=== PATIENT | male | born 1985 | race Caucasian/White ===

== ENCOUNTER 2021-01-21 09:48 | Emergency (ER) | payer OTHER, SELFPAY ==
[2021-01-21] VITALS (7 sets, daily range): BP systolic 131–150; BP diastolic 74–89; PULSE 70–113; RESP 12–20; TEMP 36.7; O2SAT 98–100
--- NOTE | ~2021-01-21 | XR_ITS ---
EXAMINATION: XR tibia fibula RT 2V DATE: 01/21/2021 10:14 INDICATION: Right lower leg fracture with drainage TECHNIQUE: AP and crosstable lateral views of the right tibia and fibula were obtained. COMPARISON: None. FINDINGS: There is plaster splinting material about the right ankle and lower leg which partially obscures fine bone and soft tissue detail. Oblique fracture through the distal fibula with fracture plane exiting medially at the level of the tibiotalar joint. One cortical width lateral displacement and mild later al angulation of the lateral malleolar fragment. Transverse fracture across the medial malleolus at t he level of the tibiotalar joint line. There is 4 mm lateral displacement of the medial malleolar fra gment. The talar dome situated between the malleolar fragments is also mildly subluxed laterally rela tive to the tibial plafond. There is mild widening of the medial and lateral clear spaces. Finally th ere is a coronally oriented fracture crosses the posterior malleolus which involves a small portion o f the posterior articular surface of the tibial plafond. The fragment is displaced couple millimeter posteriorly and proximally and with mild posterior angulation resulting in approximately 6 mm fractur e gap with 3-4 mm incongruity at the articular surface. No other fractures identified. Normal alignme nt and joint spaces at the right knee with no right knee joint effusion. Joint spaces in the visualiz ed right forefoot also appear normal. IMPRESSION: 1. Casted Monteiro type B3 trimalleolar fracture at the right ankle with mild lateral displacement of th e medial and lateral patellar fragments and intervening talar dome. Reviewed, dictated and finalized at location A. IMPRESSION: 1. Casted Monteiro type B3 trimalleolar fracture at the right ankle with mild late ral displacement of the medial and lateral patellar fragments and intervening t alar dome.
--- NOTE | ~2021-01-21 | XR_ITS ---
XR ankle RT min 3V DATE: 01/21/2021 12:12 INDICATION: Post-reduction examination TECHNIQUE: 3 views COMPARISON: 01/21/2021 right tibia fibula FINDINGS: There is soft tissue wrap around the lower leg and ankle. There is a trimalleolar fracture with lateral subluxation at the tibiotalar joint. The lateral malleolar fracture is comminuted, with one cortical width lateral displacement. There is minimal displacement at the medial and posterior malleolar fractures. IMPRESSION: Trimalleolar fracture/lateral tibiotalar joint subluxation Reviewed, dictated and finalized at location B.
--- NOTE | 2021-01-21 10:03 | ED.GENADULT ---
HPI - General Adult General Chief complaint: Extremity Injury, Lower <TOÑO Smith Last Filed: 01/21/21 20:18> Stated complaint: right leg pain <TOÑO Smith Last Filed: 01/21/21 20:18> History of Present Illness HPI narrative: Patient is a 35-year-old male who comes to the ED today complaining of right leg pain. According to the patient 7 days ago he suffered a right tib-fib fracture. This happened because he had to jump off of a one-story roof. He was seen at [facility]. The patient says that he did not have surgery. He was placed in a Ortho-Glass splint which he is still wearing. He does not know of any follow-up appointments with any orthopedic doctors. He says that the pain is keeping him up at night. He is trying to not bear weight on that right leg, using crutches and wheelchair. The pain seems to be intermittent. He is taking Percocet which takes the edge off . Denies any fevers or any systemic symptoms. <TOÑO Smith Last Filed: 01/21/21 20:18> Related Data Home medications: Home Medications Medication Instructions Recorded Confirmed No Home Medications 01/21/21 01/21/21 <TOÑO Smith Last Filed: 01/21/21 20:18> Allergies/adverse reactions: Allergies Allergy/AdvReac Type Severity Reaction Status Date / Time erythromycin base AdvReac Intermediate Nausea and Verified 01/21/21 10:25 Vomiting <TOÑO Smith Last Filed: 01/21/21 20:18> Review of Systems Constitutional: Constitutional: Reports as per HPI, Denies fever(s), Denies night sweats and Denies weakness <TOÑO Smith Last Filed: 01/21/21 20:18> Cardiovascular: Cardiovascular: Denies chest pain, Denies edema, Denies leg edema, Denies dyspnea and Denies orthopnea <TOÑO Smith Last Filed: 01/21/21 20:18> Respiratory: Respiratory: Denies cough and Denies dyspnea <Tashi Keen PA-Jana Zuniga Last Filed: 01/21/21 20:18> Gastrointestinal: Gastrointestinal: Denies abdominal pain, Denies constipation, Denies diarrhea, Denies nausea and Denies vomiting <Tashi KeenKAROLINAJana Zuniga Last Filed: 01/21/21 20:18> Musculoskeletal: Musculoskeletal: Reports as per HPI (See HPI for right leg pain), Denies abnormal gait, Denies back pain, Denies numbness and Denies tingling <Tashi KeenKAROLINAJana - Last Filed: 01/21/21 20:18> Neurologic: Denies Abnormal speech present, Denies abnormal gait, Denies numbness, Denies tingling and Denies weakness <Tashi KeenIRLANDACassie Zuniga Last Filed: 01/21/21 20:18> Psychiatric: Psychiatric: Denies homicidal ideation and Denies suicidal ideation <Tashi DeckerIRLANDA keaneCassie Zuniga Last Filed: 01/21/21 20:18> [facility] Social History Social History: Social History Alcohol intake: current <Tashi KeenIRLANDACassie Zuniga Last Filed: 01/21/21 20:18> Exam Const: General: cooperative, healthy appearing, comfortable, no acute distress, well developed, alert, awake and Physically active <Tashi KeenKAROLINAJana Zuniga Last Filed: 01/21/21 20:18> Orientation/consciousness: patient oriented x3 <Tashi WilloughbyIRLANDA hoyosCassie Zuniga Last Filed: 01/21/21 20:18> HENMT: Head: normal to inspection, normocephalic and atraumatic <Tashi KeenKAROLINAJana Zuniga Last Filed: 01/21/21 20:18> Ears: external ears normal <Tashi KeenKAROLINAJana Zuniga Last Filed: 01/21/21 20:18> General nose exam: Normal external nose present <Tashi KeenKAROLINAJana Zuniga Last Filed: 01/21/21 20:18> Eyes: Pupils: Equal, round and reactive pupils present <Tashi WilloughbyKAROLINA hoyosJana Zuniga Last Filed: 01/21/21 20:18> EOM: EOMs intact bilaterally <TOÑO Smith Last Filed: 01/21/21 20:18> Neck: Neck: normal visual inspection <TOÑO Smith Last Filed: 01/21/21 20:18> Chest: Chest palpation & inspection: normal inspection of the chest and no tenderness <TOÑO Smith Last Filed:
[2021-01-21] MEDS: KETOROLAC 30 MG/ML VIAL (*BKC) IM (10:21)
--- NOTE | 2021-01-21 14:55 | PC.NURSE ---
Pt to be transferred to [facility], where prior ortho care received. awaiting further instructions from provider.
--- NOTE | 2021-01-21 15:45 | PC.NURSE ---
[facility] holding and will call when prepared to take patient to ED.
[2021-01-21] MEDS: KETOROLAC 15 MG/ML VIAL (*BKC) IV PUSH (20:50)
== END 2021-01-21 22:30 | disposition short-term general hospital (02) ==
PROVIDERS: Emergency Provider Emergency Medicine
DX: S82.851A Displaced trimalleolar fracture of right lower leg, initial encounter for closed fracture (principal); Z87.820 Personal history of traumatic brain injury; W13.2XXA Fall from, out of or through roof, initial encounter
CPT/HCPCS: 27818; 29515; 73590; 73610; 96372; 96374; 99285; J1885